=== PATIENT | female | born 1970 | race Caucasian/White ===

== ENCOUNTER → 2021-08-22 16:05 | Outpatient (BNVA) | payer OTHER, SELFPAY | PROVIDERS: Family Provider Nurse Practitioner Family; Visit Provider Nurse Practitioner Family | DX: Z20.822 Contact with and (suspected) exposure to COVID-19 (principal) | CPT/HCPCS: 87635 ==

== ENCOUNTER 2023-02-04 06:00 | Outpatient (RCR) | payer OTHER, SELFPAY | END 2023-02-12 23:59 | disposition home or self-care (01) | LOC: WPT 06:00 | PROVIDERS: Visit Provider Nurse Practitioner Family | DX: M54.42 Lumbago with sciatica, left side (principal) | CPT/HCPCS: 97110; 97161; 97530 ==

== ENCOUNTER 2023-02-11 09:53 | Outpatient (CLI) | payer OTHER, SELFPAY ==
--- NOTE | 2023-02-11 10:20 | MR_ITS ---
WS: [id number] MRI CERVICAL SPINE NONCONTRAST TECHNIQUE: Sagittal T1, T2 and STIR imaging. Axial T2, gradient, and fiesta imaging. CLINICAL INFORMATION: Mild LEFT and no significant RIGHT foraminal narrowing. Spinal canal is patent. COMPARISON: MRI 2019 FINDINGS: Straightening of the normal cervical lordosis. Cervical curve. Prior postoperative changes C5-C7. Cor d signal is normal. C2-C3: Mild facet arthropathy. Spinal canal and foramen are patent. C3-C4: Mild LEFT and no RIGHT foraminal narrowing. Moderate facet arthropathy. Spinal canal is patent . C4-C5: Disc osteophyte protrusion with indentation on cervical cord with mild/moderate central canal stenosis. Moderate facet arthropathy. Moderate LEFT and mild RIGHT bony foraminal narrowing. Mild fac et arthropathy. Central canal stenosis has progressed compared to previous. C5-C6: Postoperative changes. Moderate bilateral bony foraminal narrowing. Spinal canal is patent. C6-C7: Postoperative changes. Moderate bilateral bony foraminal narrowing. Mild facet arthropathy. Mi ld central canal stenosis. C7-T1: Mild LEFT and no significant RIGHT foraminal narrowing. Mild central canal stenosis is improve d compared to previous. Visualized brain stem structures: Normal. Prevertebral soft tissues: Normal. MR/MR cervical spin wo con* [id number] IMPRESSION: 1. Straightening of the normal cervical lordosis. Postoperative changes ACDF C 5-C7. 2. Mild to moderate central canal stenosis C4-C5 slightly progressed compared to previous with central disc osteophyte protrusion. Slight indentation on cerv ical cord. 3. Mild central canal stenosis C7-T1 appears improved compared to previous. 4. Bony foraminal narrowing worse at LEFT C4-C5, bilateral C5-C6, and bilatera l C6-C7.
== END 2023-02-11 09:54 | disposition home or self-care (01) ==
PROVIDERS: PCP Nurse Practitioner Family; Visit Provider Registered Nurse
DX: M50.30 Other cervical disc degeneration, unspecified cervical region (principal); M54.12 Radiculopathy, cervical region; G95.9 Disease of spinal cord, unspecified; M48.03 Spinal stenosis, cervicothoracic region; M25.78 Osteophyte, vertebrae; Z98.890 Other specified postprocedural states
CPT/HCPCS: 72141

== ENCOUNTER 2023-02-13 06:00 | Outpatient (RCR) | payer OTHER, SELFPAY | END 2023-03-14 23:59 | disposition home or self-care (01) | LOC: WPT 06:00 | PROVIDERS: PCP Nurse Practitioner Family; Visit Provider Nurse Practitioner Family | DX: M54.42 Lumbago with sciatica, left side (principal) | CPT/HCPCS: 97110; 97530 ==